=== PATIENT | male | born 1950 | race Two or more races ===

== ENCOUNTER 2023-03-12 07:37 | Emergency (ER) | payer OTHER ==
[~2023-03-12] VITALS: Ht 185.4 cm; Wt 68.6 kg
[2023-03-12] MEDS ORDERED: ONDANSETRON HCL 4 MG/2 ML VIAL IV ONE (08:00)
[2023-03-12] MEDS ORDERED: MORPHINE SULFATE 4 MG/ML SYR/VIAL IV ONE (08:00)
[2023-03-12] MEDS ORDERED: CLINDAMYCIN 600MG IV 50 ML IV ONE (08:00)
[2023-03-12] MEDS ORDERED: SODIUM CHLORIDE 0.9% 500 ML IV ONE (08:00)
[2023-03-12 08:37] LABS: Urine Epithelial Cast None Seen /hpf (<5)
[2023-03-12 08:51] LABS: Urine Bacteria NONE SEEN /hpf (None Seen); Urine Blood Negative /uL (Negative); Urine Clarity Clear (Clear); Urine Color Straw (Yellow); Urine Protein, UAD Negative (Negative); Urine Specific Gravity 1.005 (1.001-1.035); Urine Urobilinogen Normal (Negative); Urine WBC <1 /hpf (0 - 3); Urine pH 7.5 (5.0-8.0)
[2023-03-12 08:54] LABS: Alanine Aminotransferase 49 U/L (7-40); Albumin 4.6 g/dL (3.2-4.8); Alkaline Phosphatase 91 U/L (46-116); Anion Gap 1 (5-15); Aspartate Aminotransferase 56 U/L (13-40); BUN/Creatinine Ratio 22.8 (10.0-20.0); Bilirubin, Total 0.9 mg/dL (0.2-1.0); Blood Urea Nitrogen 18 mg/dL (9-23); Calcium 10.1 mg/dL (8.5-10.1); Carbon Dioxide 28 mmol/L (20-30); Chloride 96 mmol/L (98-107); Glucose 114 mg/dL (74-106); Potassium 4.1 mmol/L (3.5-5.1); Sodium 125 mmol/L (136-145); Total Protein 7.1 g/dL (5.7-8.2)
[2023-03-12 09:15] LABS: Erythrocyte Sedimentation Rate 13 mm/hr (0-20)
[2023-03-12] MEDS ORDERED: IOHEXOL 300 MG/ML 100ML BOTTLE IJ ONE (09:42)
[2023-03-12 10:06] LABS: Basophils # (auto) 0 10 ^3/uL (0-0.2); Eosinophils # (auto) 0 10 ^3/uL (0-0.8); Hemoglobin 13.5 g/dL (13.5-17.5); Lymphocytes # (auto) 0.4 10 ^3/uL (0.4-5.4)
[2023-03-12 10:12] LABS: Basophils % (auto) 0.2 % (0.0-2.0); Eosinophils % (auto) 0.2 % (0.0-7.0); Hematocrit 38.1 % (41.0-53.0); Lymphocytes % (auto) 5.8 % (10.0-50.0); Mean Corpuscular Hemoglobin 38.4 pg (28.0-32.0); Mean Corpuscular Hgb Conc. 35.5 g/dL (32.0-36.0); Mean Corpuscular Volume 108.2 fL (80.0-100.0); Monocytes # (auto) 0.8 10 ^3/uL (0-1.3); Monocytes % (auto) 11.5 % (0.0-12.0); Neutrophils # (auto) 5.8 10 ^3/uL (1.6-8.6); Neutrophils % (auto) 82.3 % (37.0-80.0); Nucleated Red Blood Cells % 0.1 %; Red Blood Cells 3.52 10^6/uL (4.5-5.90); Red Cell Distribution Width 13.4 % (11.8-14.3)
[2023-03-12 12:20] VITALS: BP 138/80; PULSE 65; RESP 17; TEMP 98; O2SAT 97
[2023-03-12] MEDS ORDERED: HYDROcodone-ACET 10/325MG TAB PO ONE (13:15)
== END 2023-03-12 12:26 | disposition home or self-care (01) ==
LOC: ER 07:37 → EDBD 07:37 → ER 12:26
DX: L03.317 Cellulitis of buttock (principal); K52.9 Noninfective gastroenteritis and colitis, unspecified; I10 Essential (primary) hypertension; E03.9 Hypothyroidism, unspecified
CPT/HCPCS: 36415; 74177; 80053; 81001; 85025; 85652; 96365; 96375; 99285; J2270; J2405; J3490; J7040; Q9967